=== PATIENT | male | born 2000 | race Two or more races ===

== ENCOUNTER → 2020-09-11 | Emergency (ER) | payer OTHER ==
[~2020-09-11] VITALS: Ht 175.3 cm; Wt 68.0 kg
== END | disposition home or self-care (01) ==
LOC: ER 04:07
DX: F10.120 Alcohol abuse with intoxication, uncomplicated (principal); F12.929 Cannabis use, unspecified with intoxication, unspecified; R41.82 Altered mental status, unspecified